=== PATIENT | male | born 1980 | race Two or more races ===

== ENCOUNTER 2018-05-15 11:50 | Outpatient (CLI) | payer OTHER ==
[~2018-05-15 11:50] MED LIST: TOPROL XL100 M1 PO
== END 2018-05-15 11:56 | disposition home or self-care (01) ==
LOC: RAD 11:50
DX: J44.9 Chronic obstructive pulmonary disease, unspecified (principal)

== ENCOUNTER 2018-05-15 12:24 | Outpatient (CLI) | payer OTHER | END 2018-05-15 12:28 | disposition home or self-care (01) | LOC: EKG 12:24 | DX: I10 Essential (primary) hypertension (principal) ==

== ENCOUNTER 2018-05-26 05:45 | Day surgery (SDC) | payer OTHER | END 2018-05-26 13:10 | disposition home or self-care (01) | LOC: CIR.AMB | DX: N47.1 Phimosis (principal) ==

== ENCOUNTER 2021-07-12 07:12 | Outpatient (CLI) | payer OTHER | END 2021-07-12 07:13 | disposition home or self-care (01) | LOC: NUCLEAR 07:12 | DX: K82.9 Disease of gallbladder, unspecified (principal) | CPT/HCPCS: 78226; A9537 ==